=== PATIENT | female | born 1955 | race African-American/Black ===

== ENCOUNTER → 2017-04-08 | Day surgery (SDC) | payer OTHER ==
[~2017-04-08] MED LIST: LACTATED RINGER'S 1000 ML INJ 1,000 ML ONE; LOVA10TA; PROPOFOL 500 MG/50 ML BTL IV ONE; Z.0.NO CURRENT MEDS
--- NOTE | 2017-04-08 12:57 | GIPROC ---
[facility] [address], [address] COLONOSCOPY PROCEDURE REPORT EXAM DATE: 04/08/2017 PATIENT NAME: Maria Esther Sampson MR #: [id number] BIRTHDATE: 1955 ENDOSCOPIST: Fabio Underwood MD ORDER #: [id number] [employer] INSTALLER: Shelley Ovalle RN STATUS: outpatient INDICATIONS: The patient is a 61 yr old female here for a colonoscopy due to patient's immediate family history of colon cancer PROCEDURE PERFORMED: Colonoscopy, surveillance MEDICATIONS: None and Per Anesthesia. PREP QUALITY: good ESTIMATED BLOOD LOSS: None CONSENT: The patient understands the risks and benefits of the procedure and understands that these risks include, but are not limited to: sedation, allergic reaction, infection, perforation and/or bleeding. Alternative means of evaluation and treatment include, among others: physical exam, x-rays, and/or surgical intervention. The patient elects to proceed with this endoscopic procedure. medical equipment was checked for proper function. Hand hygiene and appropriate measures for infection prevention was taken. After the risks, benefits and alternatives of the procedure were thoroughly explained, Informed consent was verified, confirmed and timeout was successfully executed by the treatment team. A digital exam was performed and revealed no abnormalities of the rectum The EC-[id number] ([id number]) endoscope was introduced through the anus and advanced to the cecum, which was identified by both the appendix and ileocecal valve. The instrument was then slowly withdrawn as the colon was fully examined. COLON FINDINGS: Moderate diverticulosis was noted throughout the entire examined colon. The colon mucosa was otherwise normal. Retroflexed views revealed no abnormalities The scope was then completely withdrawn from the patient and the procedure terminated. ADVERSE EVENTS: There were no complications. IMPRESSIONS: 1. Moderate diverticulosis was noted throughout the entire examined colon 2. The colon mucosa was otherwise normal 3. Retroflexed views revealed no abnormalities 4. Was performed 5. Revealed no abnormalities of the rectum RECOMMENDATIONS: 1. Yearly hemoccult 2. High fiber diet RECALL: Return 5 years Colonoscopy Fabio Underwood MD eSigned: Fabio Underwood MD 04/08/2017 12:56 PM cc: Svetlana Yip M.D.
== END | disposition home or self-care (01) ==
LOC: ESDC 10:35
PROVIDERS: ATTEND Hospitalist
DX: Z12.11 Encounter for screening for malignant neoplasm of colon (principal); Z80.0 Family history of malignant neoplasm of digestive organs; K57.90 Diverticulosis of intestine, part unspecified, without perforation or abscess without bleeding
CPT/HCPCS: 00810; 45378; J7120